=== PATIENT | female | born 1940 | race Caucasian/White ===

== ENCOUNTER 2017-09-20 18:50 | Emergency (ER) | payer MEDICARE, BC ==
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
--- NOTE | 2017-09-21 07:36 | CT ---
Head CT Technique: Multiple axial sections through the brain were obtained. Intravenous contrast was utilized. Comparison: No previous study is available. Findings: Minimal area of increased density along the interhemispheric falx is seen overlying the frontal convexity. Difficult to exclude a minimal subdural hematoma although this is more likely due to calcification off the falx measuring 1.1 cm x 2.7 mm. No other findings of intracranial hemorrhage are seen. Ventricles along with basal cisterns and sulci over the convexities are within normal limits for the patient's age. Several small low density findings are seen within the basal ganglia felt compatible with lacunar infarcts. Similar finding is noted within the right thalamus. No other abnormal parenchymal densities are seen. No midline shift or mass effect is seen. Atherosclerotic calcifications seen within the vertebral vessel and within the carotid siphon. No acute calvarial abnormality is seen. Impression: 1. Small density off the interhemispheric falx overlying the left frontal convexity. As mentioned above, this could represent very small subdural hematoma but more likely represents extra-axial calcification off the falx. Follow-up study could be considered to determine stability in 1 to 2 weeks if patient's clinical status remains stable. 2. Minimal senescent change as noted above. Diagnostic code #3 Agree with preliminary report issued by [facility] ([facility] preliminary report dictated on 09/20/17, 10:56 PM Central Time)
--- NOTE | 2017-09-21 07:36 | CR ---
Chest: Two views of the chest were obtained. Comparison: No prior chest x-ray. Heart size and mediastinum are normal. Lungs are clear but hyperinflated. Minimal degenerative change is scattered within the spine with minimal scoliosis. Impression: 1. Mild emphysematous change. 2. Nothing acute is otherwise seen. Diagnostic code #2
== END 2017-09-20 22:50 | disposition home or self-care (01) ==
LOC: JD.ED 18:50
DX: S29.011A Strain of muscle and tendon of front wall of thorax, initial encounter (principal); R20.2 Paresthesia of skin; R42 Dizziness and giddiness; I10 Essential (primary) hypertension; I25.2 Old myocardial infarction; E78.00 Pure hypercholesterolemia, unspecified; Z79.82 Long term (current) use of aspirin; Z79.899 Other long term (current) drug therapy; Z88.1 Allergy status to other antibiotic agents; Z88.8 Allergy status to other drugs, medicaments and biological substances; X58.XXXA Exposure to other specified factors, initial encounter
CPT/HCPCS: 36415; 70450; 70450-26; 71046; 71046-26; 80053; 83690; 84484; 85025; 85379; 85610; 85730; 86140; 93005; 99285-25

== ENCOUNTER 2019-12-25 11:52 | Emergency (ER) | payer MEDICARE, BC ==
--- NOTE | 2019-12-25 12:42 | EDM.PDOC ---
ED HPI GENERAL MEDICAL PROBLEM - General Chief Complaint: Neurological Problem Stated Complaint: DIZZY/LIGHT HEADED Time Seen by Provider: 12/25/19 12:06 Source of Information: Reports: Patient, RN Notes Reviewed History Limitations: Reports: No Limitations - History of Present Illness INITIAL COMMENTS - FREE TEXT/NARRATIVE: Patient is a 79-year-old female who presents to the ED for evaluation of her dizziness/lightheadedness. Patient notes that she woke up this morning, went into the bathroom to brush her teeth, and eyes she was moving her head side to side, she felt an overwhelming sensation of dizziness. Patient notes this lasted a little bit, and then she went to go lay down the bed, and she states that she had a little bit of dizziness again while she was laying in the bed. She notes this was sort of a world spinning type dizziness, but it did not feel like her head was on a swivel. Patient notes she does have issues with blood pressure, and that her mother was a diabetic, but she does not take anything for diabetic medications nor has she been diagnosed with diabetes. Patient states when she laid down, she felt what she thought was a "hot flash", and some mild nausea but no vomiting. Patient's not had any fevers or chills, shortness of breath/cough, or any other sick-like symptoms recently. Patient states that she did take her medications as previously prescribed, and did drink a glass of orange juice with a banana this morning. She notes that this was prior to the dizziness however. - Related Data Allergies Allergy/AdvReac Type Severity Reaction Status Date / Time ciprofloxacin [From Cipro] Allergy Cannot Verified 09/20/17 22:37 Remember NSAIDS (Non-Steroidal Allergy Cannot Verified 09/20/17 22:37 Anti-Inflamma Remember Home Meds: Home Meds Aspirin 1 tab PO DAILY 09/20/17 [History] Gemfibrozil 600 mg PO BID 09/20/17 [History] Spironolactone [Aldactone] 1 tab PO DAILY 09/20/17 [History] hydroCHLOROthiazide [Hydrochlorothiazide] 25 mg PO DAILY 09/20/17 [History] Meclizine [Antivert] 25 mg PO Q6H PRN #12 tab 12/25/19 [Rx] Metoprolol Tartrate [Lopressor] 50 mg PO BID 12/25/19 [History] NIFEdipine [Nifedipine ER] 90 mg PO DAILY 12/25/19 [History] cloNIDine [Catapres] 0.1 mg PO DAILY 12/25/19 [History] hydroCHLOROthiazide [Hydrochlorothiazide] 25 mg PO DAILY 12/25/19 [History] Past Medical History HEENT History: Reports: Impaired Vision Cardiovascular History: Reports: High Cholesterol, Hypertension Gastrointestinal History: Reports: Diverticulosis 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 ED EXAM, DIZZINESS - Physical Exam Exam: See Below Exam Limited By: No Limitations General Appearance: Alert, WD/WN, No Apparent Distress Eye Exam: Right Eye: Nystagmus (maybe 2 tics rightward nystagmus), Bilateral Eye: EOMI, Normal Inspection, PERRL Nystagmus: short duration Ears: Normal External Exam, Normal Canal, Hearing Grossly Normal, Normal TMs Nose: Normal Inspection Throat/Mouth: Normal Inspection Head Exam: Atraumatic, Normocephalic Vertigo: short duration Neck: Normal Inspection Respiratory/Chest: No Respiratory Distress, Lungs Clear, Normal Breath Sounds, No Accessory Muscle Use, Chest Non-Tender Cardiovascular: Normal Peripheral Pulses, Regular Rate, Rhythm, No Murmur Neurological: Alert, Normal Mood/Affect, Normal Dorsiflexion, CN II-XII Intact (grossly), Normal Plantar Flexion, Normal Gait, No Motor/Sensory Deficits, Oriented x 3 Extremities: Normal Inspection, Normal Capillary Refill Psychiatric: Normal Affect, Normal Mood Skin Exam: Warm, Dry, Intact, Normal Color, No Rash EKG INTERPRETATION EKG Date: 12/25/19 Time: 12:07 Rhythm: NSR Rate (Beats/Min): 58 [place]: Normal P-Wave: Present QRS: Normal ST-T: Depressed (slight in leads II, III for 1 beat) QT: Normal Comparison: No Change EKG Interpretation Comments: No obvious ischemia or acute ST changes noted, reviewed by myself and Dr. Miller. Course - Vital Signs Last Recorded V/S: Last Vital Signs Temp 96.6 F L 12/25/19 12:02 Pulse 57 L 12/25/19 12:02 Resp 16 12/25/19 12:02 BP 167/61 H 12/25/19 12:02 Pulse Ox 98 12/25/19 12:02 - Orders/Labs/Meds Orders: Active Orders 24 hr Category Date Time Status EKG Documentation Completion [RC] STAT Care 12/25/19 12:02 Active Glucose [Blood Glucose Check, Bedside] [] ONETIME Care 12/25/19 12:19 Active Meds: Medications Discontinued Medications Generic Name Dose Route Start Last Admin Trade Name Freq PRN Reason Stop Dose Admin Meclizine HCl 25 mg 12/25/19 12:35 12/25/19 12:50 Antivert PO 12/25/19 12:36 25 mg ONETIME ONE Administration - Re-Assessments/Exams Free Text/Narrative Re-Assessment/Exam: 12/25/19 12:42 Patient presents to the ED for her dizziness/lightheadedness. She is not feeling dizzy or lightheaded at this time. This was a fleeting moment, could be vertigo in nature, will check blood sugar and try some meclizine with her to see if this helps relieve some of her symptoms. 12/25/19 13:19 Patient states she was feeling a little bit better, after the meclizine had been administered. Nursing staff is working on getting a blood sugar now however I do not perceive there to be any issues. Departure - Departure Time of Disposition: 13:12 Disposition: Home, Self-Care 01 Condition: Good Clinical Impression: Vertigo - Discharge Information *PRESCRIPTION DRUG MONITORING PROGRAM REVIEWED*: No *COPY OF PRESCRIPTION DRUG MONITORING REPORT IN PATIENT PHIL: No Prescriptions: Meclizine [Antivert] 25 mg PO Q6H PRN #12 tab PRN Reason: Dizziness Instructions: Dizziness, [id number] Referrals: Hansa Aldridge MD [Primary Care Provider] - Forms: ED Department Discharge Additional Instructions: You were evaluated in the ER today regarding your dizziness spell this morning. Although you are not dizzy at the time of your ER exam, it is likely that you experienced momentary vertigo, which is an inner ear balance problem. You were given a prescription for meclizine, please take 1 tablet at the onset of dizziness, to see if this does not help further issues. This medication is also available [id number], commonly marketed as Antivert, Bonine, or just generic meclizine. It is in the same area of the pharmacy or retail stores that you can find motion sickness medications, or Benadryl. If your dizziness does not seem to get much better, you can try to go to a chiropractor that does provide vertigo relief. Recommend you obtain a blood glucose monitor, and monitor your blood sugars in the morning and at night before you eat. Keep these numbers written down in a journal; so you can monitor what your blood sugars are doing to make sure that there are no major fluctuations causing issues. Please return to the ER at any time if your symptoms change or worsen. Sepsis Event Note (ED) - Evaluation Sepsis Screening Result: No Definite Risk - Focused Exam Vital Signs: Vital Signs Temp Pulse Resp BP Pulse Ox 12/25/19 12:02 96.6 F L 57 L 16 167/61 H 98 - My Orders Last 24 Hours: My Active Orders 12/25/19 12:02 EKG Documentation Completion [RC] STAT 12/25/19 12:19 Glucose [Blood Glucose Check, Bedside] [RC] ONETIME - Assessment/Plan Last 24 Hours: My Active Orders 12/25/19 12:02 EKG Documentation Completion [RC] STAT 12/25/19 12:19 Glucose [Blood Glucose Check, Bedside] [RC] ONETIME
== END 2019-12-25 13:29 | disposition home or self-care (01) ==
LOC: JD.ED 11:52
DX: R42 Dizziness and giddiness (principal); I10 Essential (primary) hypertension; E78.00 Pure hypercholesterolemia, unspecified; Z88.6 Allergy status to analgesic agent; Z88.1 Allergy status to other antibiotic agents; Z79.82 Long term (current) use of aspirin; Z79.899 Other long term (current) drug therapy
CPT/HCPCS: 82962; 93005; 99284; A9270; 93010; 99283

== ENCOUNTER 2020-10-01 09:32 | Day surgery (SDC) | payer MEDICARE, BC ==
[~2020-10-01 09:32] MED LIST: Lactated Ringers 1,000 ML IV SCH; Lidocaine 1%/Sod Bicarbonate in NS 8.4% 1 ML Syringe IDERM PRN; Sodium Chloride 0.9% 10 ML Syringe FLUSH PRN
[2020-10-01] MEDS ORDERED: fentaNYL 100 MCG/2 ML SDV ONE (09:37)
[2020-10-01] MEDS ORDERED: Lactated Ringers 1,000 ML ONE (09:38)
[2020-10-01] MEDS ORDERED: ceFAZolin 1 GM Vial ONE (09:38)
[2020-10-01] MEDS ORDERED: Propofol 200 MG/20 ML SDV ONE (09:38)
--- NOTE | 2020-10-01 10:33 | PCM.PREANE ---
Preanesthetic Assessment - Procedure Proposed Procedure: Right total hip Arthroplasty - Anesthesia/Transfusion/Family Hx Anesthesia History: Prior Anesthesia Without Reaction Family History of Anesthesia Reaction: No Transfusion History: No Prior Transfusion(s) - Review of Systems General: No Symptoms Pulmonary: No Symptoms Cardiovascular: No Symptoms Gastrointestinal: No Symptoms Neurological: Gait Disturbance (due to pain in right hip) - Physical Assessment NPO Status Date: 09/30/20 NPO Status Time: 00:00 Height: 1.57 m Weight: 59.1 kg ASA Class: 3 Mental Status: Alert & Oriented x3 Airway Class: Mallampati = 1 Dentition: Reports: [place](s), Broken Tooth/Teeth Thyro-Mental Finger Breadths: 3 Mouth Opening Finger Breadths: 3 ROM/Head Extension: Full Lungs: Clear to Auscultation, Normal Respiratory Effort Cardiovascular: Regular Rate, Regular Rhythm - Lab Values: Laboratory Last Values MRSA (PCR) Cancelled 09/21/20 09:52 - Allergies Allergies/Adverse Reactions: Allergies Allergy/AdvReac Type Severity Reaction Status Date / Time lisinopril Allergy Cannot Verified 09/28/20 15:14 Remember NSAIDS (Non-Steroidal Allergy Cannot Verified 09/28/20 15:14 Anti-Inflamma Remember ramipril [From Altace] Allergy Cannot Verified 09/28/20 15:14 Remember ciprofloxacin [From Cipro] AdvReac Vomiting Verified 09/28/20 15:14 - Blood Blood Available: Yes Product(s) Available: PRBC - Anesthesia Plan Pre-Op Medication Ordered: Beta Jacoby Beta Jacoby: Metoprolol Med Last Dose Date: 10/01/20 Med Last Dose Time: 08:00 - Acknowledgements Anesthesia Type Planned: Spinal Pt an Appropriate Candidate for the Planned Anesthesia: Yes Alternatives and Risks of Anesthesia Discussed w Pt/Guardian: Yes Pt/Guardian Understands and Agrees with Anesthesia Plan: Yes PreAnesthesia Questionnaire HEENT History: Reports: Impaired Vision, Other (See Below) Other HEENT History: wears glasses Cardiovascular History: Reports: CAD, High Cholesterol, Hypertension, AL, Stents Respiratory History: Reports: None Gastrointestinal History: Reports: Diverticulosis, GERD Genitourinary History: Reports: None LEAD NUCLEAR MEDICINE TECHNOLOGIST History: Reports: Musculoskeletal History: Reports: Osteoarthritis, Other (See Below) Other Musculoskeletal History: degenerative joint disease, finger fracture Neurological History: Reports: None Psychiatric History: Reports: None Endocrine/Metabolic History: Reports: None Hematologic History: Reports: None Immunologic History: Reports: None Oncologic (Cancer) History: Reports: None Dermatologic History: Reports: None - Infectious Disease History Infectious Disease History: Reports: None - Past Surgical History Head Surgeries/Procedures: Reports: None HEENT Surgical History: Reports: None Cardiovascular Surgical History: Reports: Carotid Stents, Varicose Respiratory Surgical History: Reports: None GI Surgical History: Reports: Colonoscopy, EGD Female Surgical History: Reports: Hysterectomy Male Surgical History: Reports: None Endocrine Surgical History: Reports: None Neurological Surgical History: Reports: None Musculoskeletal Surgical History: Reports: None Oncologic Surgical History: Reports: None Dermatological Surgical History: Reports: None - SUBSTANCE USE Tobacco Use Status *Q: Never Tobacco User Recreational Drug Use History: No - HOME MEDS Home Medications: Home Meds Gemfibrozil 600 mg PO BID 09/20/17 [History] Spironolactone [Aldactone] 25 tab PO DAILY 09/20/17 [History] Metoprolol Tartrate [Lopressor] 50 mg PO BID 12/25/19 [History] NIFEdipine [Nifedipine ER] 60 mg PO DAILY 12/25/19 [History] cloNIDine [Catapres] 0.1 mg PO BID 12/25/19 [History] hydroCHLOROthiazide [Hydrochlorothiazide] 25 mg PO DAILY 12/25/19 [History] Nitroglycerin 0.4 mg SL ASDIRECTED PRN 03/26/20 [History] guaiFENesin [Mucinex] 1 tab PO DAILY PRN 03/26/20 [History] Acetaminophen/HYDROcodone [[place] 325-5 MG] 1 - 2 tab PO Q6H PRN #40 tablet 09/28/20 [Rx] Aspirin [Aspirin EC] 325 mg PO BID #70 tab 09/28/20 [Rx] Calcium Carb, Citrate/Vit D3 [Citracal + D ER] 2 tab PO DAILY 09/28/20 [History] Cholecalciferol (Vitamin D3) [Vitamin D3] 4,000 unit PO DAILY 09/28/20 [History] atorvaSTATin Calcium [Lipitor] 40 mg PO BEDTIME 09/28/20 [History] - CURRENT (IN HOUSE) MEDS Current Meds: Current Medications Morphine Sulfate 8 mg/Epinephrine HCl 0.3 mg/Cefuroxime Sodium 750 mg/Sodium Chloride 7.9 ml 0 mg .XX ASDIRECTED PRN PRN Reason: Pain Stop: 10/01/20 18:00 Lactated Ringer's (Ringers, Lactated) 1,000 mls @ 125 mls/hr IV ASDIRECTED SEAMUS Stop: 10/01/20 23:00 Lidocaine/Sodium Bicarbonate (Lidocaine 1%/Sod Bicarbonate In Ns 8.4% 1 Ml Sy ringe) 0.25 ml IDERM ONETIME PRN PRN Reason: Prior to IV Start Stop: 10/01/20 18:00 Sodium Chloride (Sodium Chloride 0.9% 10 Ml Syringe) 10 ml FLUSH ASDIRECTED PRN PRN Reason: Keep Vein Open Stop: 10/01/20 18:00 Discontinued Medications Cefazolin Sodium (Cefazolin 1 Gm Vial) Confirm Administered Dose 2 gm .ROUTE .STK-MED ONE Stop: 10/01/20 09:39 Fentanyl (Fentanyl 100 Mcg/2 Ml Sdv) Confirm Administered Dose 100 mcg .ROUTE .STK-MED ONE Stop: 10/01/20 09:38 Lactated Ringer's (Ringers, Lactated) Confirm Administered Dose 1,000 mls @ as directed .ROUTE .STK-MED ONE Stop: 10/01/20 09:39 Propofol (Propofol 200 Mg/20 Ml Sdv) Confirm Administered Dose 600 mg .ROUTE .STK-MED ONE Stop: 10/01/20 09:39
[2020-10-01] MEDS ORDERED: Lidocaine 1% 4 ML ONE (13:03)
[2020-10-01] MEDS ORDERED: ePHEDrine 50 MG/ML SDV ONE (13:04)
[2020-10-01] MEDS ORDERED: fentaNYL 100 MCG/2 ML SDV IVPUSH PRN (13:15)
[2020-10-01] MEDS ORDERED: Ondansetron 4 MG/2 ML SDV IVPUSH PRN (13:15)
[2020-10-01] MEDS: Morphine 8 MG, EPINEPHrine 0.3 MG, Cefuroxime 750 MG, Sodium Chloride 0.9% 7.9 ML PRN ×8 (13:19→13:30)
[2020-10-01] MEDS: Vancomycin 1 GM SDV ONE ×2 (13:20→13:34)
--- NOTE | 2020-10-01 14:08 | PCM.POSTAN ---
POST ANESTHESIA ASSESSMENT - MENTAL STATUS Mental Status: Alert, Oriented - VITAL SIGNS Vital Signs: Last Vital Signs Temp 36.4 C 10/01/20 10:00 Pulse 65 10/01/20 10:00 Resp 20 10/01/20 10:00 BP 116/58 L 10/01/20 10:00 Pulse Ox 96 10/01/20 10:00 - RESPIRATORY Respiratory Status: Respiratory Rate WNL, Airway Patent, O2 Saturation Stable, Supplemental Oxygen - CARDIOVASCULAR CV Status: Pulse Rate WNL, Blood Pressure Stable - GASTROINTESTINAL GI Status: No Symptoms - PAIN Pain Score: 0 - POST OP HYDRATION Hydration Status: Adequate & Stable
--- NOTE | 2020-10-01 15:14 | CR ---
Pelvis and right hip: AP view of the pelvis was obtained as well as crosstable lateral view of the right hip. Comparison: Prior hip CT study of 09/24/20. Right hip prosthesis is seen. Components are aligned. Soft tissue air is noted. Osteopenia is seen. No acute abnormality is otherwise seen. Impression: 1. Unremarkable radiographic appearance of recently placed right hip prosthesis. Diagnostic code #2
--- NOTE | 2020-10-01 16:27 | PCM48HPAN ---
Post Anesthesia Note - EVALUATION WITHIN 48HRS OF ANESTHETIC Vital Signs in Normal Range: Yes Patient Participated in Evaluation: Yes Respiratory Function Stable: Yes Airway Patent: Yes Cardiovascular Function Stable: Yes Hydration Status Stable: Yes Pain Control Satisfactory: Yes Nausea and Vomiting Control Satisfactory: Yes Mental Status Recovered: Yes Vital Signs: Last Vital Signs Temp 35.7 C L 10/01/20 15:47 Pulse 67 10/01/20 15:47 Resp 16 10/01/20 15:47 BP 136/112 H 10/01/20 15:47 Pulse Ox 98 10/01/20 15:47 - COMMENTS/OBSERVATIONS Free Text/Narrative:: no anesthesia complications noted
[2020-10-01] MEDS ORDERED: Acetaminophen/HYDROcodone 325-5 MG Tab PO PRN (16:48)
--- NOTE | 2020-10-01 16:50 | PCM.OPNOTE ---
- General Post-Op/Procedure Note Date of Surgery/Procedure: 10/01/20 Operative Procedure(s): right total hip arthroplasty with massiel [employer] robot[employer] Pre Op Diagnosis: right hip osteoarthrosis Post-Op Diagnosis: Same Anesthesia Technique: Local, MAC, Spinal Primary Surgeon: Jv Sellers Anesthesia Provider: Sade Valero Wallpaper Printer: Venice Vasques Wallpaper Printer: Lisa Nagy EBL in mLs: 100 Complications: None Condition: Good Free Text/Narrative:: Intake & Output 10/01/20 10/01/20 10/01/20 06:59 14:59 22:59 Intake Total 350 Balance 350 52 cup 3 stem 36+7.5
[2020-10-02] MEDS ORDERED: NIFEdipine 30 MG Tab.ER PO SCH (09:00)
[2020-10-02] MEDS ORDERED: Spironolactone 25 MG Tab PO SCH ×2 (09:00)
[2020-10-02] MEDS ORDERED: Gemfibrozil 600 MG Tab PO SCH (09:00)
[2020-10-02] MEDS ORDERED: Hydrochlorothiazide 25 MG Tab PO SCH (09:00)
[2020-10-02] MEDS ORDERED: cloNIDine 0.1 MG Tab PO SCH (09:00)
[2020-10-02] MEDS ORDERED: Metoprolol Tartrate 50 MG Tab PO SCH (09:00)
[2020-10-02] MEDS: Acetaminophen/HYDROcodone 325-5 MG Tab PO PRN ×2 (09:47→11:44)
--- NOTE | 2020-10-02 10:35 | PCM.SURGPN ---
- General Info Date of Service: 10/02/20 POD#: 1 Functional Status: Reports: Pain Controlled, Tolerating Diet, Ambulating, Urinating, Incentive Spirometry, Other (The pt is contemplating Home Health services for assistance at home.) - Patient Data Vitals - Most Recent: Last Vital Signs Temp 97.3 F 10/02/20 08:08 Pulse 105 H 10/02/20 08:11 Resp 16 10/02/20 08:08 BP 150/63 H 10/02/20 08:11 Pulse Ox 95 10/02/20 08:08 Weight - Most Recent: 130 lb I&O - Last 24 Hours: Intake & Output 10/01/20 10/02/20 10/02/20 22:59 06:59 14:59 Intake Total 350 Balance 350 Lab Results Last 24 Hrs: Laboratory Results - last 24 hr 10/01/20 Range/Units 10:18 Blood Type A POSITIVE Gel Antibody Screen Negative Med Orders - Current: Current Medications Hydrocodone Bitart/Acetaminophen (Acetaminophen/Hydrocodone 325-5 Mg Tab) 1 - 2 tab PO Q4H PRN PRN Reason: Pain Last Admin: 10/02/20 09:47 Dose: 1 tab Documented by: Clonidine HCl (Clonidine 0.1 Mg Tab) 0.1 mg PO BID [facility] Last Admin: 10/02/20 08:10 Dose: 0.1 mg Documented by: Gemfibrozil (Gemfibrozil 600 Mg Tab) 600 mg PO BID [facility] Last Admin: 10/02/20 08:11 Dose: 600 mg Documented by: Hydrochlorothiazide (Hydrochlorothiazide 25 Mg Tab) 25 mg PO DAILY [facility] Last Admin: 10/02/20 08:10 Dose: 25 mg Documented by: Metoprolol Tartrate (Metoprolol Tartrate 50 Mg Tab) 50 mg PO BID [facility] Last Admin: 10/02/20 08:11 Dose: 50 mg Documented by: Nifedipine (Nifedipine 30 Mg Tab.Er) 60 mg PO DAILY [facility] Last Admin: 10/02/20 08:11 Dose: 60 mg Documented by: Spironolactone (Spironolactone 25 Mg Tab) 25 mg PO BID [facility] Last Admin: 10/02/20 09:46 Dose: 25 mg Documented by: Discontinued Medications Hydrocodone Bitart/Acetaminophen (Acetaminophen/Hydrocodone 325-5 Mg Tab) 1 - 2 tab PO Q6H PRN PRN Reason: Pain Stop: 10/01/20 23:00 Last Admin: 10/01/20 17:02 Dose: 2 tab Documented by: Cefazolin Sodium (Cefazolin 1 Gm Vial) Confirm Administered Dose 2 gm .ROUTE .STK-MED ONE Stop: 10/01/20 09:39 Morphine Sulfate 8 mg/Epinephrine HCl 0.3 mg/Cefuroxime Sodium 750 mg/Sodium Chloride 7.9 ml 0 mg .XX ASDIRECTED PRN PRN Reason: Pain Stop: 10/01/20 18:00 Last Admin: 10/01/20 13:30 Dose: 758.3 mg Documented by: Ephedrine Sulfate (Ephedrine 50 Mg/Ml Sdv) Confirm Administered Dose 100 mg .ROUTE .STK-MED ONE Stop: 10/01/20 13:05 Fentanyl (Fentanyl 100 Mcg/2 Ml Sdv) Confirm Administered Dose 100 mcg .ROUTE .STK-MED ONE Stop: 10/01/20 09:38 Fentanyl (Fentanyl 100 Mcg/2 Ml Sdv) 50 mcg IVPUSH Q5M PRN PRN Reason: Pain (severe 7-10) Stop: 10/01/20 15:00 Lactated Ringer's (Ringers, Lactated) 1,000 mls @ 125 mls/hr IV ASDIRECTED SEAMUS Stop: 10/01/20 23:00 Last Admin: 10/01/20 10:15 Dose: 125 mls/hr Documented by: Lactated Ringer's (Ringers, Lactated) Confirm Administered Dose 1,000 mls @ as directed .ROUTE .STK-MED ONE Stop: 10/01/20 09:39 Lidocaine HCl (Xylocaine-Mpf 1%) Confirm Administered Dose 4 mls @ as directed .ROUTE .STK-MED ONE Stop: 10/01/20 13:04 Lidocaine/Sodium Bicarbonate (Lidocaine 1%/Sod Bicarbonate In Ns 8.4% 1 Ml Syringe) 0.25 ml IDERM ONETIME PRN PRN Reason: Prior to IV Start Stop: 10/01/20 18:00 Last Admin: 10/01/20 10:14 Dose: 0.25 ml Documented by: Ondansetron HCl (Ondansetron 4 Mg/2 Ml Sdv) 4 mg IVPUSH ONETIME PRN PRN Reason: Nausea/Vomiting Stop: 10/01/20 16:00 Propofol (Propofol 200 Mg/20 Ml Sdv) Confirm Administered Dose 600 mg .ROUTE .STK-MED ONE Stop: 10/01/20 09:39 Sodium Chloride (Sodium Chloride 0.9% 10 Ml Syringe) 10 ml FLUSH ASDIRECTED PRN PRN Reason: Keep Vein Open Stop: 10/01/20 18:00 Spironolactone (Spironolactone 25 Mg Tab) 25 mg PO DAILY [facility] Tranexamic Acid (Tranexamic Acid 1,000 Mg/10 Ml Amp) Confirm Administered Dose 1,000 mg .ROUTE .STK-MED ONE Stop: 10/01/20 11:24 Last Admin: 10/01/20 13:34 Dose: 1,000 mg Documented by: Vancomycin HCl (Vancomycin 1 Gm Sdv) Confirm Administered Dose 1 gm .ROUTE .STK- MED ONE Stop: 10/01/20 11:24 Last Admin: 10/01/20 13:34 Dose: 1 gm Documented by: - Exam Wound/Incisions: Dressing Dry and Intact General: Alert, Cooperative, No Acute Distress Lungs: Normal Respiratory Effort Extremities: Other (NVS intact for BLE. Olga's negative. Right thigh soft.) Sepsis Event Note - Evaluation Sepsis Screening Result: No Definite Risk - Focused Exam Vital Signs: Vital Signs Temp Pulse Pulse Resp BP BP Pulse Ox 10/02/20 08:11 105 H 150/63 H 10/02/20 08:10 150/63 H 10/02/20 08:08 97.3 F 105 H 16 150/63 H 95 - Problem List Review Problem List Initiated/Reviewed/Updated: Yes - My Orders Last 24 Hours: Active Orders 24 hr Category Date Time Status Communication Order [RC] ASDIRECTED Care 10/02/20 08:11 Active Communication Order [RC] ASDIRECTED Care 10/02/20 09:10 Active Communication Order [RC] ROUTINE Care 10/01/20 13:14 Active Cooling Warming Measures [RC] ASDIRECTED Care 10/01/20 13:14 Active Notify Provider [RC] ASDIRECTED Care 10/01/20 13:14 Active Oxygen Therapy [RC] ASDIRECTED Care 10/01/20 13:14 Active Consult to Case Management/Workers Compensation Claims Supervisor [CONS] Cons 10/02/20 09:09 Active Routine Regular Diet [DIET] Diet 10/01/20 Dinner Active Acetaminophen/HYDROcodone [[place] 325-5 MG] Med 10/02/20 09:00 Active 1 - 2 tab PO Q4H PRN Metoprolol Tartrate [Lopressor] Med 10/02/20 09:00 Active 50 mg PO BID NIFEdipine [Procardia XL] Med 10/02/20 09:00 Active 60 mg PO DAILY Spironolactone [Aldactone] Med 10/02/20 09:00 Active 25 mg PO BID cloNIDine [Catapres] Med 10/02/20 09:00 Active 0.1 mg PO BID gemfibroziL [Lopid] Med 10/02/20 09:00 Active 600 mg PO BID hydroCHLOROthiazide Med 10/02/20 09:00 Active 25 mg PO DAILY Medication Orders Hydrocodone Bitart/Acetaminophen (Acetaminophen/Hydrocodone 325-5 Mg Tab) 1 - 2 tab PO Q4H PRN PRN Reason: Pain Last Admin: 10/02/20 09:47 Dose: 1 tab Documented by: BRYAN Clonidine HCl (Clonidine 0.1 Mg Tab) 0.1 mg PO BID [facility] Last Admin: 10/02/20 08:10 Dose: 0.1 mg Documented by: BRYAN Gemfibrozil (Gemfibrozil 600 Mg Tab) 600 mg PO BID [facility] Last Admin: 10/02/20 08:11 Dose: 600 mg Documented by: BRYAN Hydrochlorothiazide (Hydrochlorothiazide 25 Mg Tab) 25 mg PO DAILY [facility] Last Admin: 10/02/20 08:10 Dose: 25 mg Documented by: BRYAN Metoprolol Tartrate (Metoprolol Tartrate 50 Mg Tab) 50 mg PO BID [facility] Last Admin: 10/02/20 08:11 Dose: 50 mg Documented by: BRYAN Nifedipine (Nifedipine 30 Mg Tab.Er) 60 mg PO DAILY [facility] Last Admin: 10/02/20 08:11 Dose: 60 mg Documented by: BRYAN Spironolactone (Spironolactone 25 Mg Tab) 25 mg PO BID [facility] Last Admin: 10/02/20 09:46 Dose: 25 mg Documented by: BRYAN - Assessment Assessment (Free Text/Narrative):: POD#1 - right SOPHIE - Plan Plan (Free Text/Narrative):: 1. Discharge to home today. 2. Home Health services ordered. Social work has been in contact with the patient. 3. 325mg ASA PO BID, frequent mobility, TEDs. The pt's case has been discussed with Dr. Sellers. This note will service as documentation of the pt's [id number] visit to meet the Medicare requirements for Home Health services. The patient would benefit from Home Health prison services for wound care, assessment for signs and symptoms of infection, disease education and management. Physical therapy has been ordered to assist the pt with mobility, gait training with a walker, exercise progression, strengthening, and for education regarding total hip precautions. Occupational therapy has been ordered for a home safety evaluation, as well as assistance and education re: ADL completion. [employer] services are ordered for assistance with bathing and dressing. The patient is home-bound due to recent surgery and inability to leave the house without assistance. The pt's primary care provider is Dr. Aldridge. Dr. Sellers/LICHA Garcia
--- NOTE | 2020-10-08 08:09 | OR ---
DATE OF OPERATION: 10/01/2020 SURGEON: Jv Sellers MD OPERATION PERFORMED: Right total hip arthroplasty with [employer] robotics. PREOPERATIVE DIAGNOSIS: Right hip osteoarthrosis. POSTOPERATIVE DIAGNOSIS: Right hip osteoarthrosis. ANESTHESIA: Local MAC with spinal. ANESTHESIA PROVIDER: Sade Valero. ASSISTANTS: Venice Vasques PA-C and Lisa Nagy LPN. ESTIMATED BLOOD LOSS: 100 mL. COMPLICATIONS: None. CONDITION: Stable. IMPLANTS: 1. [place] size 52 mm solid Tritanium II acetabular cup. 2. [place] size 3 Accolade II stem. 3. [place] size 36 +7.5 Biolox femoral head. DESCRIPTION OF PROCEDURE: The patient was identified in the preoperative holding area. Proper site was marked and identified by the surgeon. The patient was taken back to the operating theater where after adequate anesthesia, the patient was placed in a left lateral decubitus position. Axillary roll was placed. Pegs were then placed and well padded. The patient's bony prominences were well padded. The patient's gluteal fold was parallel to the floor. Right hip was then sterilely prepped and draped in the usual sterile fashion. OR time-out was performed. The patient received 2 g of IV Ancef. At this time, the three 4-0 Schanz pins were placed in the iliac crest about 2 to 3 fingerbreadths posterior to the ASIS, and the Florence Ed robotic array was applied making sure that it was down to bone. A standard posterior incision was made, taken down to the IT band and gluteal fascia. This was incised along the incisional length. Checkpoint was placed in the greater trochanter. Charnley retractor was placed. Takedown of the short external rotators was done from the level of the piriformis down to the lesser trochanter. Hip was then dislocated. Neck cut was completed and found to be adequate. Attention was turned to the acetabulum. Anterior and posterior acetabular retractors were placed. Circumferential removal of the labrum was done at this time as well as the pulvinar. Checkpoint was placed on the superior rim of the acetabulum extra-articularly. 15 points were then obtained both intra-articularly in the cup as well as 15 points extra- articularly around the acetabular rim. The anterior and posterior horn were also marked. It was found to have adequate reference points for the Florence Ed robotic plan. The 52 mm reamer was then brought in with the [email or web address] robotic arm, and it was reamed until all green was gone in the acetabulum. Next, the 52 mm Tritanium II acetabular cup was impacted into place using the [email or web address] robotic arm at 45 degrees of abduction and 20 degrees of anteversion. The 36 flat liner was impacted into place, and attention was turned to the femur. Box chisel was used out laterally. Starter awl was placed down the canal. Starting with a 0 broach, I was able to broach up to a size 3, which was found to be rotationally and vertically stable. We trialed +5. At this point, there was found to be a minor amount short, so we trialed +7.5, which was found to have adequate christianity of leg lengths and was stable throughout range of motion. Trial implants were then removed. The size 3 Accolade II stem was impacted into place along with a 36 +7.5 Biolox femoral head. Hip was then relocated. #5 Ethibond suture was used for closure of short external rotators and capsule. Periarticular injection was completed. 1 L of pulse lavage irrigation with Ancef was irrigated through the hip along with 400 mL of IrriSept irrigation. Schanz pins and [place] Ed robotic array were removed as well as the checkpoint. A #2 barbed suture was used for closure of the IT band and gluteal fascia. 2-0 Vicryl was used subcutaneously, and Prineo was used for skin closure. The patient had a sterile soft dressing applied and was sent to the PACU in stable condition. MMODAL /[id number]
== END 2020-10-02 11:45 | disposition home or self-care (01) ==
LOC: JD.SDS 09:32 → JD.ICU 15:35 → JD.SDS 10-02 11:45
PROVIDERS: ATTEND Orthopaedic Surgery
DX: M16.11 Unilateral primary osteoarthritis, right hip (principal); I25.10 Atherosclerotic heart disease of native coronary artery without angina pectoris; I10 Essential (primary) hypertension; E78.2 Mixed hyperlipidemia; I25.2 Old myocardial infarction; Z79.899 Other long term (current) drug therapy; Z79.82 Long term (current) use of aspirin; Z88.1 Allergy status to other antibiotic agents; Z88.0 Allergy status to penicillin; Z98.890 Other specified postprocedural states
CPT/HCPCS: 27130; 36415; 73501; 86850; 86900; 86901; 97116; 97161; 97530; A9270; C1713; C1776; J0171; J0690; J0697; J2270; J2704; J3010; J3370; J7120; 01214; 87641

== ENCOUNTER 2023-09-27 18:16 | Emergency (ER) | payer MEDICARE, BC | END 2023-09-27 20:07 | disposition home or self-care (01) | LOC: JD.ED 18:16 | DX: R04.0 Epistaxis (principal); I10 Essential (primary) hypertension; I25.10 Atherosclerotic heart disease of native coronary artery without angina pectoris; E78.00 Pure hypercholesterolemia, unspecified; I25.2 Old myocardial infarction; K21.9 Gastro-esophageal reflux disease without esophagitis; Z79.899 Other long term (current) drug therapy; Z79.82 Long term (current) use of aspirin; Z88.8 Allergy status to other drugs, medicaments and biological substances; Z88.6 Allergy status to analgesic agent; Z88.1 Allergy status to other antibiotic agents | CPT/HCPCS: 30901; 99283; C9046 ==

== ENCOUNTER 2023-09-28 20:12 | Emergency (ER) | payer MEDICARE, BC | END 2023-09-28 21:16 | disposition home or self-care (01) | LOC: JD.ED 20:12 | DX: R04.0 Epistaxis (principal); I10 Essential (primary) hypertension; I25.10 Atherosclerotic heart disease of native coronary artery without angina pectoris; E78.00 Pure hypercholesterolemia, unspecified; I25.2 Old myocardial infarction; Z95.5 Presence of coronary angioplasty implant and graft; K21.9 Gastro-esophageal reflux disease without esophagitis; Z90.710 Acquired absence of both cervix and uterus; Z88.8 Allergy status to other drugs, medicaments and biological substances; Z88.6 Allergy status to analgesic agent; Z88.1 Allergy status to other antibiotic agents; Z79.82 Long term (current) use of aspirin; Z79.899 Other long term (current) drug therapy | CPT/HCPCS: 30901; 99283; 99283-25 ==

== ENCOUNTER 2023-09-29 00:50 | Emergency (ER) | payer MEDICARE, BC | END 2023-09-29 02:16 | disposition home or self-care (01) | LOC: JD.ED 00:50 | DX: R04.0 Epistaxis (principal); I10 Essential (primary) hypertension; E78.00 Pure hypercholesterolemia, unspecified; I25.10 Atherosclerotic heart disease of native coronary artery without angina pectoris; I25.2 Old myocardial infarction; K21.9 Gastro-esophageal reflux disease without esophagitis; Z79.899 Other long term (current) drug therapy; Z79.82 Long term (current) use of aspirin; Z88.1 Allergy status to other antibiotic agents; Z88.8 Allergy status to other drugs, medicaments and biological substances; Z88.6 Allergy status to analgesic agent | CPT/HCPCS: 30901; 99283; 99283-25 ==